=== PATIENT | female | born 1945 | race Caucasian/White ===

== ENCOUNTER 2018-12-02 15:34 | Observation (INO) | payer MEDICARE, OTHER ==
[~2018-12-02] VITALS: Ht 160 cm; Wt 90.9 kg
[~2018-12-02 15:34] MED LIST: GABA-530 PO
[2018-12-02] MEDS ORDERED: HYDROcodone/acetaminophen 10/325mg tab PO ONE (17:35)
[2018-12-02] MEDS ORDERED: HYDR-3965 PO (18:01)
[2018-12-02] MEDS ORDERED: SYN0.088T PO (19:26)
[2018-12-02] MEDS ORDERED: AMLO2.5T2 PO (19:26)
[2018-12-02] MEDS ORDERED: ASPI-529 PO (19:26)
[2018-12-02] MEDS ORDERED: HYDR12.5 PO (19:26)
--- NOTE | 2018-12-02 20:27 | NUR ---
pt upgraded to level 3 since she has 3 or more broken ribs per imaging. will reassess VS as soon as hospitalist completes his assessment
--- NOTE | 2018-12-02 20:27 | NUR ---
hospitalist at bedside assessing pt
[2018-12-02] MEDS ORDERED: magnesium hydroxide 30ml (MOM) UD suspension PO PRN (20:45)
[2018-12-02] MEDS ORDERED: ondansetron/PF 4mg/2ml inj IV PRN (20:45)
[2018-12-02] MEDS ORDERED: mag hydrox/Alum hydrox/simeth 30ml oral suspension PO PRN (20:45)
[2018-12-02] MEDS ORDERED: acetaminophen 325mg tablet PO PRN (20:45)
[2018-12-02] MEDS ORDERED: HYDROcodone/acetaminophen 5mg/325mg tablet PO PRN (20:45)
--- NOTE | 2018-12-02 21:41 | NUR ---
DR. ALMEIDA AT BEDSIDE EVALUATING PTS LEFT CHEST/RIBS W US. FAMILY AT BEDSIDE.
[2018-12-02] MEDS ORDERED: LIOT25TA12 PO (22:00)
[2018-12-02] MEDS ORDERED: SULF-14 PO (22:02)
[2018-12-02] MEDS ORDERED: AMLO5TAB PO (22:05)
--- NOTE | 2018-12-02 22:14 | NUR ---
REPORT CALLED TO BOZENA MICHEL, SURGICAL. DR. ALMEIDA PLACED NERVE BLOCK TO LEFT UPPER BACK
--- NOTE | 2018-12-02 22:47 | NUR ---
Patient in room . I have received report from [facility] and had the opportunity to ask questions and assume patient care. Patients family at bedside. patient orientated to room, appears comfortable but painful on movement.
[2018-12-02 23:59] VITALS: BP 143/74
[2018-12-03] MEDS: HYDROcodone/acetaminophen 10/325mg tab PO PRN ×2 (03:22→08:26)
--- NOTE | 2018-12-03 03:48 | NUR ---
patient stated she is unable to sleep with noise of restless room mate. Also stated she is in pain. medicated for pain, and room mate moved to make room quieter. patient attempting to sleep at this time.
--- NOTE | 2018-12-03 05:46 | NUR ---
Problems reprioritized. Patient report given, questions answered & plan of care reviewed with Yolanda [facility].
[2018-12-03 07:00] VITALS: BP 111/66
[2018-12-03] MEDS ORDERED: sulfamethoxazole/trimethoprim DS (800/160mg) tablet PO SCH (07:00)
[2018-12-03] MEDS ORDERED: liothyronine sod 5mcg tablet PO SCH (08:00)
[2018-12-03] MEDS ORDERED: HYDR-4383 PO (09:40)
[2018-12-03] MEDS ORDERED: DOCU-148 PO (09:40)
--- NOTE | 2018-12-03 10:20 | NUR ---
Problems reprioritized. Patient report given, questions answered & plan of care reviewed with YENI [facility].
--- NOTE | 2018-12-03 10:40 | NUR ---
Patient discharged on nursing end. Patient waiting on ride from family. All education completed on discharge, medications to take for next dose reviewed and acknowledged. Patient encouraged to take deep breaths and to continue with [place] for pain and colace as prescribed. Patient states she doesn't need colace, education provided and acknowledged. IV discontinued. All belongings are gathered up and ready for discharge.
== END 2018-12-03 11:45 | disposition home or self-care (01) ==
LOC: ER 15:34 → SUR 3N 23:21
PROVIDERS: ADMIT Internal Medicine; ATTEND Internal Medicine
DX: S22.42XA Multiple fractures of ribs, left side, initial encounter for closed fracture (principal); J93.9 Pneumothorax, unspecified; E03.9 Hypothyroidism, unspecified; W18.30XA Fall on same level, unspecified, initial encounter; Y92.89 Other specified places as the place of occurrence of the external cause; Y93.89 Activity, other specified; Z79.899 Other long term (current) drug therapy; Z79.82 Long term (current) use of aspirin
CPT/HCPCS: 71045; 71101; 71250; 73010; 87081; 99284; G0378

== ENCOUNTER 2019-11-17 13:38 | Outpatient (CLI) | payer MEDICARE, OTHER ==
[~2019-11-17 13:38] MED LIST changes: +AMLO5TAB PO; +ASPI-529 PO; +DOCU-148 PO; -GABA-530 PO; +HYDR-4383 PO; +HYDR12.5 PO; +LIOT25TA12 PO; +SULF-14 PO
== END 2019-11-17 23:59 | disposition home or self-care (01) ==
LOC: CARD DIAG 13:38
PROVIDERS: ATTEND Internal Medicine Cardiovascular Disease
DX: I35.1 Nonrheumatic aortic (valve) insufficiency (principal); I10 Essential (primary) hypertension
CPT/HCPCS: 93306